=== PATIENT | female | born 1995 | race Two or more races ===

== ENCOUNTER 2025-05-18 21:48 | Emergency (ER) | payer OTHER, SELFPAY ==
[2025-05-18 21:50] VITALS: BP 141/64; PULSE 89; RESP 20; TEMP 36.3; O2SAT 98; BMI 41.2
[2025-05-18 22:10] LABS: IDNOW Serial# 55D5AD1C; Strep A Nucleic Acid Negative (Negative)
[2025-05-18 22:21] LABS: COVID-19 Test Negative (Negative); IDNOW Serial# 08D9AD1C; IDNOW Serial# 58CA691E; Influenza B2 Negative (Negative)
--- OUTSIDE RECORDS SUMMARY | 2025-05-18 22:38 | XMS_ITS | Clinical Summary ---
Author Organization [address] [place] [address] [place] [phone] Phone Care Team Providers Care World Language Teacher Name Role Phone Unavailable Primary Care Provider Unavailabl e Allergies No known active allergies Encounters Date Type Department Care Team Description 03/06/2025 1:40 PM EDT - 03/06/2025 2:00 PM EDT Emergency [facility] Emergency [address] [place] [address] Acute swimmer's ear of left side (Primary Dx) Discharge Disposition: Home or Self Care from Last 3 Months Social History Tobacco Use Types Packs/Day Years Used Date Smoking Tobacco: Never Assessed Comments Unknown Sex and Gender Information Value Date Recorded Sex Assigned at Female 02/26/2025 4:08 PM EDT Legal Sex Female 12:25 AM EDT Gender Identity Female 02/26/2025 4:08 PM EDT Sexual Orientation Straight 02/26/2025 4: 08 PM EDT Obstetrics History Last Filed Vital Signs Vital Sign Reading Time Taken Comments Blood Pressure 152/94 03/06/2025 1:36 PM EDT Pulse 106 03/06/2025 1:36 PM EDT Temperature 37.1 C (98.8 F) 03/06/2025 1:36 PM EDT Respiratory Rate 16 03/06/2025 1:36 PM EDT Oxygen Saturation 100% 03/06/2025 1:36 PM EDT Inhaled Oxygen Concentration - - Weight 111 kg (244 lb) 03/06/2025 1:36 PM EDT Height 162.6 cm (5' 4 ) 03/06/2025 1:36 PM EDT Body Mass Index 41.88 03/06/2025 1:36 PM EDT Plan of Treatment Health Maintenance Due Date Last Done Comments DTaP,Tdap,and Td Vaccines (1 - Tdap) 2016 Hepatitis B Vaccines (1 of 3 - 19+ 3-dose series) 2016 Cervical Cancer Screening: P ap Smear 2018 Depression Screening 08/23/2024 HIV Screening 02/16/2025 Hepatitis C Screening 02/16/2025 Social Influencers of Health Screening 02/16/2025 COVID-19 Vaccine (1 - 2023-2 5 season) 2025 Influenza Vaccine (#1) 2025 RSV Immunization Adult Patie nts (1 - 1-dose 75+ series) 2072 HIB Vaccines Aged Out No longer eligi ble based on patient's age to complete this topic HPV Vaccines Aged Out No longer eligi ble based on patient's age to complete this topic Hepatitis A Vaccines Aged Out No long er eligible based on patient's age to complete this topic IPV Vaccines Aged Out No longer eligi ble based on patient's age to complete this topic MMR Vaccines Aged Out No longer eligi ble based on patient's age to complete this topic Meningococcal ACWY Vaccine Aged Out N o longer eligible based on patient's age to complete this topic Meningococcal B Vaccine Aged Out No l onger eligible based on patient's age to complete this topic Pneumococcal Vaccine: Pediat rics (0 to 5 Years) and At-Risk Patients (6 to 49 Years) Aged Out No longer eligible b ased on patient's age to complete this topic RSV Immunization Patients Un crow 20 months Aged Out No longer eligible b ased on patient's age to complete this topic Varicella Vaccines Aged Out No longer eligible based on patient's age to complete this topic Insurance [facility] [place] [id number]
--- NOTE | 2025-05-18 23:21 | ED_ITS ---
HPI - URI/Sore Throat General Chief Complaint: Upper Respiratory Symptoms Stated Complaint: Sore throat Time Seen by Provider: 05/18/25 23:14 History of Present Illness HPI Narrative: Patient is a 29-year-old female presents today with having coughing sore throat since yesterday. No diarrhea. No vomiting. Patient is from home. Does not think she is . No fever. No significant past medical history Related Data Previous Rx's ?Medication ?Instructions ?Recorded azithromycin 250 mg tablet See Rx Instructions PO .COM PLEX 05/18/25 upper resp infection #6 tabs ibuprofen 400 mg tablet 400 mg PO Q6H PRN pain #20 t abs 05/18/25 Allergies Allergy/AdvReac Type Severity Reaction Status Date / Time No Known Allergies Allergy Verified 05/18/25 21:51 Review of Systems Review of Systems: Positive sore throat Yes all other systems are reviewed and are negative [facility] Past Medical History Attestation statement: The following information was validated with the patient. Social History Social History Advance Directives: No Advance Directives Information Provided: No Physical Exam Exam: Exam: Appearance: Alert. Oriented X3. No acute distress. Eyes: Pupils equal, round and reactive to light. ENT: Pharynx normal. Neck: Normal inspection. Neck supple. No lymph nodes noted. No crepitus CVS: Normal heart rate and rhythm. Pulses normal. Normal S1 and S2 Respiratory: No respiratory distress. Breath sounds normal. No Wheezing. No rales Abdomen: Soft and nontender. No rigidity. No distention. good BS x4 Skin: Skin warm and dry. Normal skin color. Normal skin turgor. Extremities: No lower extremity edema. Neurovascular intact to all extremities. No Lacerations. No Rash Neuro: Oriented X 3. No motor deficit. No sensory deficit. Moving all extermities. No slurred speech Vital Signs: Vital Signs: Last Vital Signs Temp 97.3 F 05/18/25 21:50 Pulse 89 05/18/25 21:50 Resp 20 05/18/25 21:50 BP 141/64 H 05/18/25 21:50 Pulse Ox 98 05/18/25 21:50 O2 Del Method Room Air 05/18/25 21:50 BMI result Body Mass Index 41.2 Medical Decision Making Medical Decision Making MDM Narrative: Positive coughing positive sore throat positive upper respiratory symptoms. Patient's flu COVID RSV were all negative. Rapid strep was negative. Posterior pharynx actually normal. No distress. TMs are intact. Will discharge patient home more likely viral will give a course of Z-Josue. In stable condition. Differential Diagnosis Differential Diagnoses: The differential diagnosis associated with the presentation includes Upper respiratory infection Admission/Observation Consideration of admission/observation: Escalation of care including admission/observation considered Lab Data [facility] Lab Attestation statement: I reviewed the patient's lab results. Labs: Lab Results 05/18/25 Range/Units 21:56 COVID-19 (JULIETH) Negative (Negative) COVID-19 Clin Com See Note Influenza Type A ([place]) Negative (Negative) Influenza Type B ([place]) Negative (Negative) Influenza A & B Note See Note S. pyogenes GrpA [place] Negative (Negative) Independent Historian Clinical information obtained from an independent historian. History obtained from or confirmed by: Spouse Prescription Management I considered prescription management with: Pain Medication and Antibiotic Social Determinants Patient?s care significantly limited by Social Determinants of Health including: Problems related to primary support group Discharge Plan Discharge Clinical Impression: Upper respiratory infection Patient Disposition: Home, Self-Care Instructions: Upper Respiratory Infection (ED) Prescriptions: New azithromycin 250 mg tablet See Rx Instructions .ROUTE .COMPLEX Qty: 6 0RF Rx Instructions: take 500 mg today (day 1), then 250 mg for 4 days (days 2-5) ibuprofen 400 mg tablet 400 mg PO Q6H PRN (Reason: pain) Qty: 20 0RF Referrals: [facility] [Physician, Medical] - 05/22/25 Print Language: Vincentian
[2025-05-18 23:34] VITALS: BP 141/64; PULSE 89; RESP 20; TEMP 36.3; O2SAT 98
== END 2025-05-18 23:35 | disposition home or self-care (01) ==
PROVIDERS: Emergency Provider Emergency Medicine Emergency Medical Services
DX: J02.9 Acute pharyngitis, unspecified (principal); R05.9 Cough, unspecified
CPT/HCPCS: 87502; 87635; 87651; 99282; 99283